=== PATIENT | female | born 1965 | race Caucasian/White ===

== ENCOUNTER 2018-09-28 08:35 | Observation (INO) ==
[2018-09-21 14:22] LABS: BASO# 0.05 X1000 (0.0-0.2); BASO% 0.9 % (0.0-0.8); EOS# 0.15 X1000 (0.0-0.7); EOS% 2.7 % (0.0-10.0); HEMATOCRIT 41.4 % (37.0-47.0); HEMOGLOBIN 14.3 g/dL (12.0-16.0); LYMPH% 34.2 % (20.5-51.1); MCH 29.8 PG (27-31); MCHC 34.5 g/dL (33-37); MCV 86.3 FL (81-99); MONO# 0.42 X1000 (0.11-0.59); MONO% 7.6 % (1.7-9.3); MPV 10.6 FL (7.4-10.4); NEUT# 3.03 X1000 (1.4-6.5); NEUT% 54.6 % (42.2-75.2); PLT 196 X1000 (130-400); RDW 11.9 % (11.5-14.5); WBC 5.55 X1000 (4.8-10.8)
--- NOTE | 2018-09-21 14:27 | EKG Report ---
Test Performed on : 09/21/2018 1:52:06 PM Test Reason : pat Blood Pressure : / mmHG Vent. Rate : 066 BPM Atrial Rate : 066 BPM P-R Int : 172 ms QRS Dur : 082 ms QT Int : 424 ms P-R-T Axes : 061 010 024 degrees QTc Int : 444 ms Normal sinus rhythm. Possible Left atrial enlargement Borderline ECG No previous ECGs available Confirmed by Jalen ADRIAN, Valente Padilla ([id number]) on 09/21/2018 3:02:09 PM
[2018-09-21 14:38] LABS: AGAP 8; BUN 9 mg/dL (8-22); CALCIUM 8.8 mg/dL (8.8-10.2); CHLORIDE 105 mmol/L (98-107); COSMO 279; CREATININE 0.7 mg/dL (0.5-0.9); ESTIMATED GFR > 60; GLUCOSE 83 mg/dL (70-104); POTASSIUM 4.7 mmol/L (3.5-5.1); SODIUM 141 mmol/L (136-145); TCO2 28 mmol/L (25-35)
--- NOTE | 2018-09-24 11:21 | HISTORY AND PHYSICAL ---
HISTORY: The patient is a 53-year-old female who we initially saw in approximately July of this year after being sent over by Dr. Juve Villalba. She has had gastric bypass having lost approximately 120 pounds. The patient is having difficulty with incontinence and defecation and fecal smearing related to her posterior compartment issue. She is not having any splinting or digitation. However, she is having issues with enuresis and positional incontinence. Upon evaluation, she has got some advanced prolapse issues and is wishing to proceed towards surgical correction. The patient is admitted at this time for abdominal sacrocolpopexy, mid urethral sling with Obtryx, and probable posterior compartment defect repair. The risks and benefits have been discussed at length. She understands and is wishing to proceed. PAST MEDICAL HISTORY: Positive for hypertension. PAST SURGICAL HISTORY: Positive for gastric bypass, cholecystectomy, vaginal hysterectomy, bilateral salpingo-oophorectomy, and left foot surgery. She is noted to be a para 2, 0-0-2. ALLERGIES: None. CURRENT MEDICATIONS: Lisinopril 10 and p.r.n. medications. FAMILY HISTORY: Positive for breast cancer in a paternal aunt x2. SOCIAL HISTORY: Negative for tobacco, ETOH, or drugs. She works as a special service representative. PHYSICAL EXAMINATION: VITAL SIGNS: BMI is 34. HEENT: Normocephalic, atraumatic. PERRLA. EOMI. No thyromegaly. CV: Regular rate and rhythm without murmur, gallop, or rub. PULMONARY: Clear to auscultation and percussion. ABDOMEN: Soft. : Shows AA -2, BA -6, AP -2, BP -8, GH is 6, PB is 4. The TBL is 11 with point C at -8. IMPRESSION AND PLAN: She does have some relaxation apically and anteriorly, and with the incontinence and her prior gastric bypass, decision has been made to proceed with more definitive surgical corrections. Because of this, she is wishing to proceed with surgical intervention. She is admitted at this time for sacrocolpopexy, mid urethral sling, and probable posterior compartment defect repair. The risks and benefits have been discussed at length. cc: Richard Wallace MD
[~2018-09-28 08:35] MED LIST: DECADRON ONE; DIPRIVAN 1% ONE; FENTANYL ONE; NEOSTIGMINE ONE; NORCURON ONE; QUELICIN (DOSE) ONE; ROBINUL ONE; STERILE WATER INJ. ONE; VERSED ONE; XYLOCAINE-MPF 2% ONE; ZOFRAN ONE
[2018-09-28] MEDS ORDERED: KEFZOL 1 GM/D5W 2 GM/100 ML IVPB ONE (09:04)
[2018-09-28] MEDS ORDERED: LR 1,000 ML ONE ×3 (09:04→13:08)
[2018-09-28] MEDS ORDERED: MARCAINE 0.25% PF/EPI 1:200,000 ONE ×2 (09:55→10:58)
[2018-09-28] MEDS ORDERED: D10W 1,000 ML ONE (09:55)
[2018-09-28] MEDS ORDERED: METROGEL-VAGINAL 0.75% GEL ONE (10:58)
[2018-09-28] MEDS ORDERED: SODIUM CHLORIDE 0.9% ONE (10:58)
[2018-09-28 11:07] LABS: URINE SOURCE CATH
[2018-09-28 11:14] LABS: BILIRUBIN URINE NEGATIVE (NEGATIVE); BLOOD URINE NEGATIVE (NEGATIVE); COLOR STRAW; GLUCOSE URINE NEGATIVE (NEGATIVE); KETONE URINE NEGATIVE (NEGATIVE); LEUKOCYTES URINE NEGATIVE (NEGATIVE); NITRITE URINE NEGATIVE (NEGATIVE); PROTEIN URINE NEGATIVE (NEGATIVE); TURBIDITY URINE CLEAR (CLEAR); UROBILINOGEN URINE NORMAL (NORMAL)
[2018-09-28 11:15] LABS: UR EPITHELIAL CELLS <10 /HPF (<10); URINE BACTERIA NEGATIVE /HPF; URINE RBC <10 /HPF (<10); URINE WBC <10 /HPF (<10)
[2018-09-28] MEDS ORDERED: LASIX ONE (11:58)
[2018-09-28] MEDS ORDERED: TORADOL ONE (11:58)
[2018-09-28] MEDS ORDERED: DEMEROL ONE (13:07)
[2018-09-28] MEDS ORDERED: DILAUDID ONE (13:29)
[2018-09-28] MEDS ORDERED: ZOFRAN ODT PO PRN (13:53)
--- NOTE | 2018-09-28 13:54 | OPERATIVE NOTE ---
PROCEDURE DATE: 09/28/2018 PREOPERATIVE DIAGNOSES: 1. Pelvic organ prolapse. 2. Posterior compartment defect. 3. Fecal incontinence. POSTOPERATIVE DIAGNOSES: 1. Pelvic organ prolapse. 2. Posterior compartment defect. 3. Fecal incontinence. PROCEDURE PERFORMED: Da Sujatha abdominal sacrocolpopexy, mid urethral sling with Obtryx, posterior compartment defect repair, rectal sphincteroplasty. SURGEON: Richard Wallace MD. ANESTHESIA: General. ESTIMATED BLOOD LOSS: 50 mL. HISTORY: The patient is a 53-year-old female who had been having increasing problems with pelvic organ prolapse that was symptomatic, as well as fecal incontinence. She had been followed by Dr. Juve Villalba in the [facility]. OPERATIVE FINDINGS: Stage III prolapse, very nonexistent anterior rectal sphincter on examination with the patient asleep. OPERATIVE PROCEDURE: The patient was taken to operating room, placed in the supine position. After adequate general anesthesia was obtained, she was placed in the [facility]. Her abdomen and vagina were prepped and draped in the usual fashion. A supraumbilical incision was made after infiltration of 0.25% Marcaine with epinephrine. A 12 mm port and sheath were introduced. Pelvic contents were visualized. Therefore, insufflation with CO2 to an intra- abdominal pressure of 14 was performed. The left-sided ports were placed under direct visualization after infiltration with the same local anesthetic. The right-sided ports were little bit more difficult to place because of some adhesions from her prior gastric bypass and cholecystectomy with the bowel being adhered along the right-hand side. We had to be very careful with our placement of ports on the right but these were placed after infiltration and under direct visualization. At this time, the patient was placed in a deep Trendelenburg position. EEA sizers were placed within the vagina and the anus, and a Rudolph catheter was placed. The robot was docked in the usual fashion with hot scissors in the right hand, PK in the left, and a Cardiere grasper in the third arm. We initially were going to do some adhesiolysis over on the right side. However, with the patient in the deep Trendelenburg position, the bowel fell out of the operative site and it was felt that we could continue on without having to surgically perform the adhesiolysis at that site, so we turned our attention towards the pelvis. The descending colon was adhered across the vaginal cuff. This was taken down sharply with minimal to no cautery. We were then able to visualize the pelvis much better. Upon doing this, we used the EEA sizer to elevate the vagina. We were able to delineate the vesicovaginal plane. We started using traction, countertraction, and primarily sharp dissection to perform dissection in the vesicovaginal space. The right-hand side was noted to be densely adhered. The midline and left side came down without too much difficulty. However, the right side was so adhered that I was concerned about possible cystotomy. Decision was made not to do any further dissection along the right, so we had approximately 2 cm dissected on the right-hand side beyond our initial apical incision site and it involved approximately a 2 cm area going all the way down on the patient's right-hand side. However, the midline and left side, we were able to easily open. Upon doing this, we then turned our attention towards the posterior. This is where our largest defect was and we easily developed 10 to 12 cm in the posterior compartment. Anteriorly, we had approximately 8 to 10 cm developed out. At this point, we then turned our attention towards the promontory. We used the Cardiere grasper to deviate the colon laterally and a bowel grasper was utilized to hold the small bowel out of the way to visualize the sacral promontory. We elevated the peritoneum and removed approximately 2 cm of presacral fat to be able to visualize the anterior longitudinal ligament. We then created our tunnel without any difficulty, staying well away from the ureter as well as the midline colon. We then trimmed our mesh. We trimmed the anterior arm of mesh approximately 8 cm. However, it was not our typical 4 to 5 cm in width. It was more in the 3 cm region along the right-hand side so posteriorly, we had approximately 10 to 12 cm of full width, 4 cm mesh trimmed. Then the third arm was trimmed based on the suspected length of the vagina. Mesh was introduced. We started in the midline anteriorly using interrupted Martelle-Medardo sutures. All sutures were thrown with an initial surgeon's throw and then 4 half-throws after this. We placed approximately 8 to 10 cm in the midline and left side, leaving the left space totally adhered. As we got to the apex and got away from where all the scarring was on the right-hand side, we then had full width covering of the apex of vagina and several sutures were placed across the apex. Then, starting posteriorly, we brought at least 10 cm down posteriorly, securing it again with the interrupted Martelle-Medardo sutures. We got down to the distal levators in the posterior compartment and stopped at that point because we were struggling to suture any further. A decision was made to perform a distal vaginal repair. Upon doing this, we then brought the third arm up to the promontory and easily placed 2 sutures through the folded over portion of this mesh. To give it some extra strength, two sutures were placed through both folds as well as through the anterior longitudinal ligament. There was no mesh that needed to be trimmed at this point because of the 1 cm fold. We reperitonealized using a V-Loc suture starting at the promontory. We came down to the Y portion and then pursestringed around that area, pulling the posterior peritoneum and colon up into this area, closing that space off. We then turned our attention to undocking the robot. We had performed a copious amount of irrigation and hemostasis was observed. Our blood loss at this time had been approximately 20 mL. We undocked the robot and used a Malcolm-Anamaria closure system to close the fascia and peritoneum of the supraumbilical incision as well as the assistance port. This was with 0 Vicryl ligature. Nursing services closed all 5 skin incisions with subcuticular 4-0 Vicryl ligature. Surgical glue was easily placed to help with skin edge reapproximation. On a vaginal exam, the Rudolph catheter was removed. We had excellent anterior and apical support at this point. We filled the bladder with approximately 300 mL and there was no evidence of any abnormalities. Both ureters were effluxing urine. We turned our attention towards placement of the sling. The urethra was grasped proximally and distally. Approximately 8 to 10 mL of the same local anesthetic was injected periurethrally. A sagittal incision was made. Metzenbaum scissors were utilized to dissect up to the 10 o'clock and 2 o'clock positions. Based on the bony landmarks of the ischiopubic ramus, as well as the insertion of the adductor longus, a stab incision was initially made on the left-hand side. The Halo device was introduced through the incision to the paving plant operator's finger, which directed it out. The mesh was attached to it and it was retracted back through the skin. This was performed on the contralateral side in a similar fashion. Repeat cystoscopy was performed. Again, there was no evidence of any mesh abnormalities and both ureters were still effluxing urine. The cystoscope was removed and a Justine clamp was placed in the mid urethral position. The tape was brought with a Justine clamp. Blue tag was excised. The sheaths were easily removed. There was no tension on the mesh whatsoever. The mid urethral incision was closed with a running 2-0 Vicryl ligature. Posteriorly, decision was made to perform a distal rectal examination. We also noticed at this time there was almost no rectal sphincter that could be palpated distally and so we started in the posterior compartment. We elevated the midline with Allis clamps and injected 40 mL of the same local anesthetic. We used sharp dissection after our sagittal incision and then blunt dissection to dissect out towards the distal levators. We then plicated the distal levators. We then closed the distal levators with interrupted 0 Vicryl ligature. This reapproximated that area well. We then closed this incision with running 2-0 Vicryl ligature. Because of the concerns regarding the anal sphincter and her fecal incontinence, we then made a separate incision across the perineal area. We then used Metzenbaum scissors to dissect out the distal sphincter. We were able to reach with Allis clamps laterally to identify the thickened tissue of the rectal sphincter. We used interrupted 0 Vicryl ligatures in a [id number] fashion at two sites to reapproximate this area. This brought the area together quite well, coaptating the sphincter quite nicely. We then closed this distal incision across the sphincter with a 2-0 Vicryl ligature in the typical fashion. Sponge count, instrument count, and needle count were correct x3. Vaginal pack was placed. The patient was taken out of the low adjustable stirrups. She was awakened and taken to the recovery room with vital signs stable. cc: Richard Wallace MD
[2018-09-28] MEDS: LR 1,000 ML IV SCH ×2 (14:33→20:58)
[2018-09-28] MEDS: NORCO-5 PO PRN ×2 (16:55→20:28)
--- NOTE | 2018-09-28 17:43 | PROGRESS NOTE ---
DATE: 09/28/2018 TIME: 5:00 p.m. SUBJECTIVE: Patient is alert and oriented x3. Her is in the room with her. OBJECTIVE: Afebrile. Vital signs are stable. Her heart rate is slightly low. Her urine output has been clear and adequate. We discussed operative findings. We discussed the adhesions with the right ovary. She understands. We discussed discharge management in the morning. She will undergo voiding trial and pack removal tomorrow and after completion of the voiding trial will be discharged home. cc: Richard Wallace MD
[2018-09-28] MEDS: PERIDEX MT SCH (22:40)
[2018-09-28] MEDS: COLACE PO SCH (22:43)
[2018-09-28] MEDS: TORADOL IV SCH (22:44)
[2018-09-29] MEDS: TORADOL IV SCH ×3 (05:18→09:08)
[2018-09-29] MEDS: NORCO-5 PO PRN (05:18)
[2018-09-29] MEDS: LR 1,000 ML IV SCH (05:19)
[2018-09-29 08:30] VITALS: BP 138/78
[2018-09-29] MEDS ORDERED: PRINIVIL PO SCH (09:00)
[2018-09-29] MEDS: COLACE PO SCH (09:08)
[2018-09-29] MEDS: PERIDEX MT SCH (09:08)
--- NOTE | 2018-09-30 00:15 | DISCHARGE SUMMARY ---
ADMISSION DATE: 09/28/2018 DISCHARGE DATE: 09/29/2018 HISTORY: The patient is a 53-year-old who was referred to me by Dr. Juve Villalba for advanced stage prolapse. She was admitted for surgical intervention. HOSPITAL COURSE: The patient underwent a robotic abdominal sacrocolpopexy with midurethral sling using Obtryx as well as a posterior compartment defect repair and a rectal sphincteroplasty. Her postoperative course has been uncomplicated. Blood loss at the time surgery was approximately 50 mL. After completion of the voiding trial, she will be discharged home. DISCHARGE MEDICATIONS: Include Dundee 5, Toradol, and Colace. DISCHARGE INSTRUCTIONS: She was counseled at length regarding the use of nonsteroidal's with her prior history of gastric bypass. She was also counseled regarding regular diet and decreased activities. cc: Richard Wallace MD
== END 2018-09-29 12:32 | disposition home or self-care (01) ==
LOC: 4N 08:35 → PAT 08:35
PROVIDERS: ADMIT Obstetrics & Gynecology; ATTEND Obstetrics & Gynecology
CPT/HCPCS: 80048; 81001; 85025; 93005; 93010; 94761; 94799; A9270; C1771; C1781; J0330; J0690; J1100; J1170; J1885; J1940; J2175; J2250; J2405; J3010; J7120; S2900